=== PATIENT | female | born 1960 | race Caucasian/White ===

== ENCOUNTER 2018-12-03 09:25 | Inpatient (IN) ==
--- NOTE | 2018-11-04 08:08 | History & Physical Report ---
Date of Service November 04, 2018 Date of Surgery: 12-03-18 Assessment & Plan (1) Bilateral primary osteoarthritis of knee: Risks and benefits of procedure discussed in detail today, patient would like to proceed with bilateral total knee replacements at [facility] as scheduled. will obtain medical clearance prior to surgery as well as obtain PATs at [facility]. Will place on Xarelto x 1 month post op, f/u 2 weeks post op for routine post-operative care and x-ray, sooner if having any problems. will make arrangements for transfer to [facility] at time of discharge. At this point in time, has failed conservative measures and would like to proceed with surgical intervention. History of Present Illness Chief Complaint: bilateral knee pain Primary Care Provider: Hussein Knapp MD Ms Hernandez is a 58 year old female who complains of bilateral knee pain equally, presents for pre-op evaluation prior to bilateral total knee replacements on 12-03-[address] [facility]. She presents with pain and stiffness in both knees, and she states that the symptoms have been chronic non-traumatic. The symptoms occur constantly with intermittent worsening. Currently the patient states that the symptoms are moderate. The pain is described as aching, throbbing and sharp. The symptoms occur continuously. She rates her current pain as 6/10, worst is 8/10. The symptoms are aggravated by ascending stairs, daily activities, descending stairs and first steps while awake. Karin states that the symptoms are relieved by no specific activity and Pt. has used Ice and multiple types of braces. In addition to knee pain equally on both sides the patient is also experiencing crepitus, decreased mobility, joint pain, limping, instability, locking, loss of motion, stiffness and "Giving out". Prior NSAIDs include Advil and Aleve. She has been treated with a corticosteroid injection in both knees with no relief. She has had Pt., ambulates with cane at times. Patient has had previous therapy. has failed conservative measures and would like to proceed with bilateral total knee replacements. Allergies Allergy/AdvReac Type Severity Reaction Status Date / Time aspirin AdvReac Unknown BRUISES Verified 10/24/18 12:22 UNDER THE SKIN Home Medications Home Medications Medication Instructions Recorded Confirmed Type ibuprofen [Advil] 800 mg PO QID PRN 10/24/18 10/24/18 History ibuprofen-diphenhydramine cit 3 cap PO HS 10/24/18 10/24/18 History [Advil PM] Past Med/Surg History Medical History GERD (gastroesophageal reflux disease) Migraine HX Nausea and vomiting after administration of anesthetic agent Numbness and tingling in right hand S/P RESIDUAL IN FINGERS AFTER CERVICAL SURGERY 10/2015 Osteoarthritis Surgical History History of appendectomy History of section X 3 History of laminectomy WITH METAL IMPLANTS C3-THRU T1 History of tonsillectomy Family History Grandmother (Paternal) Family history of diabetes mellitus Mother Family history of reaction to anesthesia SLOW TO WAKE UP Social History Preferred Language: Faroese Communication Ability: Effective Netsuite Consultant Required: Yes Beliefs That Will Affect Care: None Current Living Situation: Alone Other Information That Helps Us Care for You: No Feels Safe at Home: Yes Safety Concerns: Feels Safe At This Time Smoking Status: Never smoker Hx Alcohol Use: Yes Hx Substance Use: No Review of Systems All systems reviewed & are unremarkable except as noted in HPI & below Constitutional: no fever, no chills and no sweats Respiratory: no cough and no dyspnea Cardiovascular: no chest pain, no dyspnea and no orthopnea Gastrointestinal: no abdominal pain, no nausea and no vomiting Musculoskeletal: as per Subjective / HPI Integumentary: no rash and no lesions Physical Exam Vital Signs (Past 24 Hours): Ht: 5ft 6in Wt: 108.86kg BP: 130/80 Pulse: 80 Constitutional: WD/WN, vitals as above no acute distress Respiratory: normal respiratory effort, lungs clear to auscultation no respiratory distress, no labored breathing and does not use accessory muscles Cardiovascular: RRR, no murmur, no edema Gastrointestinal (Abdomen): normal bowel sounds, soft, nontender, no hepatosplenomegaly Musculoskeletal: Bilateral knee Physical exam: she ambulates with a limp, overall she has varus alignment bilaterally, there is no atrophy or ecchymosis noted, she does have +1 suprapatellar effusion in both of her knees, she has tenderness to both medial and lateral joint lines to her right knee, more medial sided tenderess to the left knee. negative patellar apprehension, she does have crepitation noted to both knees with active ROM. bilateral knees stable to valgus and varus stress, stewart negative, posterior drawer negative. Range of motion right knee 0/5/110, left knee 0/5/115. her lower extremities are neurovascularly intact, calf soft and non tender, DP pulse +2 bilaterally. Results & Data Diagnostic Findings Bilateral Knee X-ray from 06/28/18 confirm advanced degenerative changes bilateral knees, greatest medial compartments and patellofemoral joints, showing joint space narrowing, osteophyte formation and subchondral sclerosis. no acute bony pathology noted. no loose bodies.
--- NOTE | 2018-11-04 12:43 | Anesthesiology Consultation ---
Date of Service November 04, 2018 Assessment & Plan (1) Encounter for pre-operative examination: PCP Clearance ([facility]EROY) 11/18: "Labs, EKG reviewed-OK...patient is medically cleared. Special attention to positioning, intubation with h.o cervical fusion C3-T1." Chart Review Chart Review: Acceptable Risk for Surgery and Patient seen in Pre Admission Testing Teaching & Discussion Instructed NPO after midnight before surgery, except medications with 15 cc of water. Medication instructions provided according to the PAT guidelines. Per patient, she is to hold Ibuprofen 7 days prior to surgery per surgeon's instructions. History Surgery Operation Date: 12/03/18 11:55 Proposed Procedures p Bilateral Total Knee Arthroplasty - Andrez Sagastume DO Height/Weight Height: 5 ft 6 in Weight: 109.1 kg Allergies Allergy/AdvReac Type Severity Reaction Status Date / Time aspirin AdvReac Unknown BRUISES Verified 10/24/18 12:22 UNDER THE SKIN Medications Home Medications Medication Instructions Recorded Confirmed Last Taken ibuprofen [Advil] 800 mg PO QID PRN 10/24/18 10/24/18 Unknown ibuprofen-diphenhydramine cit 3 cap PO HS 10/24/18 10/24/18 Unknown [Advil PM] Past Medical History Medical History GERD (gastroesophageal reflux disease) Migraine HX Nausea and vomiting after administration of anesthetic agent Numbness and tingling in right hand S/P RESIDUAL IN FINGERS AFTER CERVICAL SURGERY 10/2015 Osteoarthritis Past Family History Family History Grandmother (Paternal) Family history of diabetes mellitus Mother Family history of reaction to anesthesia SLOW TO WAKE UP Past Surgical History Surgical History History of appendectomy History of section X 3 History of laminectomy WITH METAL IMPLANTS C3-THRU T1 History of tonsillectomy Past Anesthesia History No Hx of Anesthesia Complications (other than PONV) and No Family Hx of Anesthesia Complications History of PONV Yes (with general anesthesia) Motion Sickness Screening History of Motion Sickness: Yes (occ) Social History Smoking Status: Never smoker Do You Dip or Chew Tobacco: No Hx Alcohol Use: Yes Alcohol type: wine and hard liquor alcohol intake frequency: holidays/special occasions only Hx Substance Use: No Exercise / Class Metabolic Activity II 4-5 Yardwork/Stairs/Walk up hill (Denies CP or SOB with 1 FOS, using cane currently for ambulation) Review of Systems Pt denies any recent chest pain, shortness of breath, palpitations, cough, fever or URI. Physical Exam Vital Signs BP: 122/80 P: 82bpm SPO2: 99% RA T: 98.2 F R: 12 Constitutional + obese ENMT Mouth: no dental restorations, no chipped teeth and no loose teeth Thyromental Distance: > or= 3.5 Finger Breadths (4) Mallampati Class: III Neck normal visual inspection and + limited neck extension (mildly limited 2/2 c spine fusion) Respiratory normal respiratory effort Auscultation: lungs clear to auscultation bilaterally Cardiovascular Rate/Rhythm: regular rate and regular rhythm Heart Sounds: no murmur Vessels: no carotid bruit Extremities: no edema Testing Electrocardiogram Date: 11/04/18 Findings: + NSR @ (78) Chest X-Ray Date: 11/04/18 Findings: + NAD Laboratory Results 11/04/18 12:28 11/04/18 12:28 Blood Type A Positive 11/04/18 12:28 Antibody Screen NEGATIVE 11/04/18 12:28 PT 10.2 Seconds (9.0-12.0) 11/04/18 12:28 INR 1.0 (0.9-1.1) 11/04/18 12:28 APTT 27.3 Seconds (21.0-31.0) 11/04/18 12:28 Hemoglobin A1c 6.0 % (4.5-5.6) H 11/04/18 12:28 Urine Color Yellow 11/04/18 12:28 Urine Appearance Clear (Clear) 11/04/18 12:28 Urine pH 5.0 (4.5-7.5) 11/04/18 12:28 Ur Specific [place] 1.022 (1.000-1.030) 11/04/18 12:28 Urine Protein Negative (Negative) 11/04/18 12:28 Urine Glucose (UA) Negative (Negative) 11/04/18 12:28 Urine Ketones Negative (Negative) 11/04/18 12:28 Urine Nitrite Negative (Negative) 11/04/18 12:28 Ur Leukocyte Esterase Negative (Negative) 11/04/18 12:28 11/04/18 12:28 Urine Culture - Final Urine,Clean Catch Three types or organisms present, all moderate counts probable skin peyton. No further identifications or sensitivities to follow.
--- NOTE | 2018-11-04 13:23 | XRay Report ---
XR chest Pre-admission PA/Lat CLINICAL HISTORY: pat preoperative COMPARISON STUDY: No previous studies for comparison. FINDINGS: The bones soft tissues and hemidiaphragms are normal. The cardiomediastinal silhouette is n ormal. The lungs are clear. The pulmonary vasculature is normal. IMPRESSION: Negative chest. The above report was generated using voice recognition software. It may contain grammatical, syntax or spelling errors. Electronically signed by: Jamie Phillips M.D. 11/04/2018 1:22 PM
[2018-11-04 13:50] LABS: Appearance Urine Clear (Clear); Bilirubin Urine Negative (Negative); Blood Urine Negative (Negative); Color Urine Yellow; Glucose Urine UA Negative (Negative); Ketones Urine Negative (Negative); Leukocyte Esterase Urine Negative (Negative); Nitrite Urine Negative (Negative); Protein Urine Negative (Negative); Specific Gravity Urine 1.022 (1.000-1.030); Urobilinogen Urine Negative (Negative)
[2018-11-04 13:51] LABS: Basophils # (auto) 0.05 K/uL (0-0.2); Basophils % (auto) 0.5 %; Eosinophils # (auto) 0.21 K/uL (0-0.5); Hematocrit (blood only) 41.6 % (37-47); Hemoglobin 13.9 g/dL (12.0-16.0); Immature Granulocytes # (auto) 0.04 K/uL (0.00-0.02); Immature Granulocytes % (auto) 0.4 %; Lymphocytes # (auto) 2.32 K/uL (1.2-3.4); Lymphocytes % (auto) 22.2 %; Mean Corpuscular Hgb Conc 33.4 g/dL (32-36); Mean Corpuscular Volume 90.6 fL (80-100); Monocytes # (auto) 0.66 K/uL (0.11-0.59); Monocytes % (auto) 6.3 %; Neutrophils # (auto) 7.18 K/uL (1.4-6.5); Neutrophils % (auto) 68.6 %; Platelet Count 301 K/uL (130-400); RDW Coefficient of Variation 13.3 % (11.5-14.5); RDW Standard Deviation 43.9 fL (36.4-46.3); Red Blood Count 4.59 M/uL (4.2-5.4); White Blood Count 10.46 K/uL (4.8-10.8)
[2018-11-04 14:08] LABS: Albumin Level 4.1 gm/dl (3.4-5.0); Calcium 9.6 mg/dl (8.5-10.1); Creatinine Clr Calc Pharmacy 70.1 ml/min; Est GFR (African American) 65.1; Est GFR (Non-African American) 56.1; Partial Thromboplastin Time 27.3 Seconds (21.0-31.0); Potassium 4.2 mmol/L (3.5-5.1); Prothrombin Time 10.2 Seconds (9.0-12.0)
[2018-11-04 14:10] LABS: Estimated Average Glucose 126 mg/dl
[~2018-12-03 09:25] MED LIST: ACETAMINOPHEN 500 MG TAB PO SCH; BUPIVACAINE 0.5 % 5 MG/1 ML PF 10ML VIAL ONE; BUPIVACAINE/EPINEPHRINE 0.5% MPF 1:200,000 30 ML VIAL ONE; CEFAZOLIN 2000MG 2,000 MG/15 ML SYR IV SCH; CeleBREX 200 MG CAP PO SCH; DEXAMETHASONE SOD INJ 4 MG/ML VIAL ONE; FAMOTIDINE 20 MG TAB PO SCH; GABAPENTIN 300 MG PO SCH; LIDOCAINE HCL 2% 2 ML VIAL/AMP(20MG/ML) INFIL ONE; LR 500ML BOLUS, THEN 15ML/HR IV SCH; MIDAZOLAM HCL 1 MG/ML 2ML VIAL ONE; ONDANSETRON INJ 2 MG/ML 2 ML VIAL ONE; PROPOFOL IV EMULSION 10 MG/ML 20 ML VIAL IV ONE; ROPIVACAINE 0.5% HCL/PF 150 MG, BUPIVACAINE 0.5% MPF 30 ML, EPINEPHrine 30MG/30ML (OR U... INFIL SCH; TRANEXAMIC ACID 1,000 MG **IV Intra-op IV SCH; TRANEXAMIC ACID 1,000 MG **IV Pre-op IV SCH; dexAMETHasone 4 MG TAB PO SCH; fentaNYL citrate 100 MCG/2 ML VIAL ONE
--- NOTE | 2018-12-03 09:48 | History & Physical Bridge Note ---
Date of Service December 03, 2018 History & Physical Bridge Note I have examined the patient, reviewed the History & Physical and in the interval since the performance of the History & Physical I have noted the following changes of clinical significance: no changes noted
[2018-12-03] MEDS ORDERED: POVIDONE-IODINE OP SOLN 30 ML BTL ONE (10:16)
[2018-12-03] MEDS ORDERED: ORTHO JOINT ANESTHETIC ONE (10:16)
[2018-12-03] MEDS ORDERED: BACITRACIN INJ 50,000 UNIT VIAL ONE (10:16)
[2018-12-03] MEDS ORDERED: fentaNYL citrate 100 MCG/2 ML VIAL IV PRN (10:33)
[2018-12-03] MEDS ORDERED: ePHEDrine sulfate 50 MG/ML AMP IV PRN (10:33)
[2018-12-03] MEDS ORDERED: ONDANSETRON INJ 2 MG/ML 2 ML VIAL IV PRN ×2 (10:33→15:58)
[2018-12-03] MEDS ORDERED: ATROPINE SULFATE 0.1 MG/ML 10ML SYR IV PRN (10:33)
[2018-12-03] MEDS ORDERED: MIDAZOLAM HCL 1 MG/ML 2ML VIAL ONE (11:47)
[2018-12-03] MEDS ORDERED: PROPOFOL IV EMULSION 10 MG/ML 20 ML VIAL IV ONE ×3 (12:19→13:31)
--- NOTE | 2018-12-03 15:33 | Operative Report ---
Post Operative Report Pre & Post Diagnosis Operation Date: 12/03/18 11:55 Pre-Op Diagnosis: Bilateral knee osteorathritis Post-Op Diagnosis: Bilateral knee osteorathritis Procedure Operation Date: 12/03/18 11:55 Actual Procedures p Bilateral Total Knee Arthroplasty(Bilateral utilizing Dieter persona bilateral patient matched total knee arthroplasty right size 7 standard femur EE tibia 10 medial constrained poly-31 x 8 asymmetrical patella left size 7 narrow femur the left tibia 10 mm medial constrained poly-28 x 8 mm asymmetrical patella) - Andrez Sagastume DO Surgeon Andrez Sagastume DO Delivery Table Operator Devan WELCH Estimated Blood Loss 10 Findings Consistent with Post-Op Diagnosis Patient presents with severe end-stage tricompartmental degenerative joint disease bilateral knees with varus alignment cystic changes [id number] eburnated with medial and lateral osteophytes as well as eburnated bone to bone on bilateral patellofemoral joints patient's available attempts at conservative management presents for bilateral total knee arthroplasty Specimens Bone and cartilage Complications none Disposition Accompanied Patient To Recovery: No Disposition: Recovery Room Indications [facility] after failing attempts at conservative management the above intraoperative findings at the time of surgery patient is failed attempts at previous corticosteroid injections [place]co supplementation bracing weight loss relative rest activity modification she presents the above intraoperative findings were noted patient presents for bilateral total knee arthroplasty Description of Procedure After proper prepping draping the bilateral lower extremities the right lower extremity was performed first an anterior incision was made in the region of the midline dissection was carried down through subcu tissues to the region medial parapatellar incision was made patella subluxed lateralward medial lateral meniscal joints were excised distal femoral osteotomy cut was made utilizing a custom jig the distal femoral cut having been made for 1 block was used proximal femoral chamfers and the distal femoral chamfers were all made as well as anterior posterior cuts and excellent alignment the osteophytes were all removed tibia was subluxed anterior were remaining remnants of moved proximal tibia was prepared utilizing intramedullary cutting guide flexion extension gaps were checked and laminar road hogger operator was used to remove any osteophytes in the posterior space the patient was subsequently the proximal tibia prepared utilizing appropriate reamers and chamfer cuts after having a placed trial of a 10 mm spacer was noted to give excellent stability in both the lateral compartments full range of motion from full extension stable to mid flexion stable to flexion with no area of tightness patella tracking was noted to be excellent socially was irrigated with copious muscle sterile saline solution was obtained and maintained the final components were brought in the field and cemented the following order tibia femur patella the 10 mm medial constrained poly-was placed excellent stability was evidence of smooth deep fascia closed over 2 medium bore Hemovacs with a #1 Vicryl subcu was 2-0 Vicryl skin was closed with a running by V lock suture and skin glue sterile compression dressings placed system of the left lower extremity went underwent an anterior standard incision dissection carried down medial parapatellar incision was made patella was subluxed lateralward the femur patella was prepared and drilled the proximal femur was prepared utilizing a custom fit guide distal femoral osteotomy was made as well as the 4-in-1 cut tibia was subluxed anteriorward proximal tibial osteotomy was made and small osteophytes were removed who have been thoroughly irrigated appropriate trials were placed taken through full range of motion is usually stable to full range of motion including flexion extension mid flexion socially the following components were cemented in the appropriate order tibia femur patella excellent stability was noted a 10 mm strain poly-was placed and formed thorough irrigation debridement was obtained mild abrasion to the medial proptosis closed over 2 medium bore Hemovacs with #1 Vicryl subcuticular Vicryl sutures with a running V lock suture sterile compressive dressing as well as skin glue was placed patient socially taken recovery in stable condition appropriate document was present Devan WELCH was necessary for prepping draping retraction wound closure and was necessary for the case I attest to the content of the Intraoperative Record and any orders documented therein. Any exceptions are noted below.
--- NOTE | 2018-12-03 15:37 | Anesthesiology Progress Note ---
Date of Service December 03, 2018 Anesthesia Post Procedure Vital Signs Vital Signs: Temp Pulse Pulse Resp BP Pulse Ox 12/03/18 14:45 74 16 121/70 98 12/03/18 14:35 77 16 116/70 99 12/03/18 14:28 36.5 C 86 16 126/74 99 12/03/18 10:03 36.7 C 85 20 137/68 96 Transfer of Care Handoff Completed per policy Notes Mental Status: alert / awake / arousable Patient Amnestic to Procedure: Yes Nausea / Vomiting: adequately controlled Pain: adequately controlled Airway Patency, RR, SpO2: stable & adequate BP & HR: stable & adequate Hydration State: stable & adequate Neuraxial Anesthesia: was administered and sensory block is resolving Anesthetic Complications: no major complications apparent and Pt Satisfied with anesthetic care
--- NOTE | 2018-12-03 15:45 | XRay Report ---
XR knee RT 2V routine CLINICAL HISTORY: Surgical Post Op COMPARISON: None. DISCUSSION: There are postsurgical changes of a total right knee arthroplasty and patellar resurfacin g. The femoral tibial components appear well seated. Overlying surgical drains are evident. There is air in the soft tissues consistent with recent surgery. IMPRESSION: Postsurgical changes of a total right knee arthroplasty. Electronically signed by: Jaden Cowan M.D. 12/03/2018 3:44 PM
--- NOTE | 2018-12-03 15:46 | XRay Report ---
XR knee LT 2V routine CLINICAL HISTORY: Surgical Post Op COMPARISON: None. DISCUSSION: There are postsurgical changes of a total left knee arthroplasty and patellar resurfacing . The femoral and tibial components appear well seated. Overlying surgical drains are evident. There is air within the soft tissues consistent with recent surgery. IMPRESSION: Postsurgical changes of a total left knee arthroplasty. Electronically signed by: Jaden Cowan M.D. 12/03/2018 3:44 PM
[2018-12-03] MEDS ORDERED: HYDROmorphone INJ 0.5 MG/0.5 ML SYR IV PRN (15:58)
[2018-12-03] MEDS ORDERED: BISACODYL 10 MG SUPP PR PRN (15:58)
[2018-12-03] MEDS ORDERED: MAGNESIUM HYDROXIDE SUSP 30 ML UDC PO PRN (15:58)
[2018-12-03] MEDS ORDERED: NALOXONE HCL 0.4 MG/1 ML VIAL/CARP IV PRN (15:58)
[2018-12-03] MEDS: OXYCODONE HCL IR 5 MG TAB (IMMEDIATE RELEASE) PO PRN ×2 (19:16→20:20)
[2018-12-03] MEDS: SODIUM CHLORIDE 0.9% 1000ML 1,000 ML IV SCH (20:21)
[2018-12-03] MEDS: DOCUSATE SODIUM 100 MG CAP PO SCH (21:13)
[2018-12-03] MEDS: SENNA 8.6 MG TAB PO SCH (21:14)
[2018-12-03] MEDS: CEFAZOLIN 2000MG 2,000 MG/15 ML SYR IV SCH (21:19)
[2018-12-03] MEDS: ACETAMINOPHEN 500 MG TAB PO SCH (21:19)
[2018-12-04] MEDS: OXYCODONE HCL IR 5 MG TAB (IMMEDIATE RELEASE) PO PRN ×5 (00:18→22:03)
[2018-12-04] MEDS: CEFAZOLIN 2000MG 2,000 MG/15 ML SYR IV SCH (05:25)
[2018-12-04] MEDS: ACETAMINOPHEN 500 MG TAB PO SCH ×3 (05:25→20:51)
[2018-12-04] MEDS: SODIUM CHLORIDE 0.9% 1000ML 1,000 ML IV SCH (05:26)
[2018-12-04 06:19] LABS: Hematocrit (blood only) 33.2 % (37-47); Hemoglobin 11.5 g/dL (12.0-16.0); Mean Corpuscular Hgb Conc 34.6 g/dL (32-36); Mean Corpuscular Volume 87.4 fL (80-100); Mean Platelet Volume 10.8 fL (7.4-10.4); Platelet Count 227 K/uL (130-400); RDW Coefficient of Variation 13.6 % (11.5-14.5); RDW Standard Deviation 43.6 fL (36.4-46.3); White Blood Count 12.22 K/uL (4.8-10.8)
[2018-12-04 07:07] LABS: Calcium 8.2 mg/dl (8.5-10.1); Creatinine Clr Calc Pharmacy 77.5 ml/min; Est GFR (African American) 74.1; Est GFR (Non-African American) 63.9
[2018-12-04] MEDS: MULTIVITAMIN TAB PO SCH (07:57)
[2018-12-04] MEDS: DOCUSATE SODIUM 100 MG CAP PO SCH ×2 (07:57→20:50)
[2018-12-04] MEDS: RIVAROXABAN 10 MG TABLET PO SCH (07:57)
[2018-12-04] MEDS: KETOROLAC 30 MG/ML VIAL IV SCH ×3 (08:01→20:51)
--- NOTE | 2018-12-04 08:07 | Anesthesiology Progress Note ---
Date of Service December 04, 2018 Anesthesia Post Procedure Vital Signs Vital Signs: Temp Pulse Pulse Pulse Resp BP BP 12/04/18 04:05 36.4 C L 76 18 115/77 12/03/18 23:10 36.4 C L 77 18 95/61 L 12/03/18 19:05 36.6 C 74 16 126/75 12/03/18 17:47 86 18 122/78 12/03/18 16:44 77 16 129/79 12/03/18 16:20 79 16 128/79 12/03/18 15:45 36.8 C 69 16 115/71 12/03/18 15:25 36.9 C 68 16 115/76 12/03/18 15:15 36.9 C 74 16 115/71 12/03/18 15:05 74 16 117/70 12/03/18 14:55 74 16 129/72 12/03/18 14:45 74 16 121/70 12/03/18 14:35 77 16 116/70 12/03/18 14:28 36.5 C 86 16 126/74 12/03/18 10:03 36.7 C 85 20 137/68 Pulse Ox 12/04/18 04:05 98 12/03/18 23:10 97 12/03/18 19:05 94 12/03/18 17:47 97 12/03/18 16:44 98 12/03/18 16:20 98 12/03/18 15:45 99 12/03/18 15:25 98 12/03/18 15:15 98 12/03/18 15:05 98 12/03/18 14:55 98 12/03/18 14:45 98 12/03/18 14:35 99 12/03/18 14:28 99 12/03/18 10:03 96 Pain Intensity Bilateral Knee: Pain Intensity: 3 Notes Mental Status: alert / awake / arousable and participated in evaluation Patient Amnestic to Procedure: Yes Nausea / Vomiting: adequately controlled Pain: adequately controlled Airway Patency, RR, SpO2: stable & adequate BP & HR: stable & adequate Hydration State: stable & adequate Neuraxial Anesthesia: was administered and sensory block resolved Anesthetic Complications: no major complications apparent
--- NOTE | 2018-12-04 08:24 | Orthopedic Progress Note ---
Date of Service December 04, 2018 Assessment & Plan (1) Bilateral primary osteoarthritis of knee: Postop day 1 status post bilateral total knee arthroplasty. Begin PT and OT protocols today with weightbearing as tolerated. We may possibly have to use an immobilizer on the one knee depending on how much weakness or buckling she is having. Nursing is aware. DVT prophylaxis with rivaroxaban, SCDs, and JULIETA hose. Pain management with acetaminophen, oxycodone, hydromorphone, with addition of Toradol 30 mg IV every 6 hours DC planning-[facility] group home facility. Subjective Postop day 1 status post bilateral total knee arthroplasty. Patient is currently lying in bed. She is awake and alert. She states that she has been out of bed to the bedside commode but not much more than that. Moderate pain when doing this. She also states that her knees feel a little weak and one feels like it wants to buckle right greater than left. She denies shortness of breath, chest pain, lightheadedness. She denies calf tenderness. She is hoping to go to [facility] post discharge. Physical Exam Physical Exam: Dressings are clean, dry, and intact bilaterally. Calves are soft and nontender. Neurovascular is intact. Toes are mobile. Hemovac drainage was 100 mL's from the right and 10 mL's from the left. Results & Data Vital Signs (Past 12 Hours) Vital Signs Temp Pulse Pulse Resp BP BP Pulse Ox 12/04/18 07:40 36.4 C L 80 16 124/76 98 12/04/18 04:05 36.4 C L 76 18 115/77 98 12/03/18 23:10 36.4 C L 77 18 95/61 L 97 Laboratory Results Laboratory Results WBC 12.22 K/uL (4.8-10.8) H 12/04/18 05:50 RBC 3.80 M/uL (4.2-5.4) L 12/04/18 05:50 Hgb 11.5 g/dL (12.0-16.0) L 12/04/18 05:50 Hct 33.2 % (37-47) L 12/04/18 05:50 MCV 87.4 fL (80-100) 12/04/18 05:50 MCH 30.3 pg (25-34) 12/04/18 05:50 MCHC 34.6 g/dL (32-36) 12/04/18 05:50 RDW Std Deviation 43.6 fL (36.4-46.3) 12/04/18 05:50 RDW Coeff of Bobbi 13.6 % (11.5-14.5) 12/04/18 05:50 Plt Count 227 K/uL (130-400) 12/04/18 05:50 MPV 10.8 fL (7.4-10.4) H 12/04/18 05:50 Immature Gran % (Auto) 0.4 % 11/04/18 12:28 Neut % (Auto) 68.6 % 11/04/18 12:28 Lymph % (Auto) 22.2 % 11/04/18 12:28 [place] % (Auto) 6.3 % 11/04/18 12:28 Eos % (Auto) 2.0 % 11/04/18 12:28 Baso % (Auto) 0.5 % 11/04/18 12:28 Immature Gran # (Auto) 0.04 K/uL (0.00-0.02) H 11/04/18 12:28 Neut # (Auto) 7.18 K/uL (1.4-6.5) H 11/04/18 12:28 Lymph # (Auto) 2.32 K/uL (1.2-3.4) 11/04/18 12:28 [place] # (Auto) 0.66 K/uL (0.11-0.59) H 11/04/18 12:28 Eos # (Auto) 0.21 K/uL (0-0.5) 11/04/18 12:28 Baso # (Auto) 0.05 K/uL (0-0.2) 11/04/18 12:28 PT 10.2 Seconds (9.0-12.0) 11/04/18 12:28 INR 1.0 (0.9-1.1) 11/04/18 12: APTT 27.3 Seconds (21.0-31.0) 11/04/18 12:28 PTT Ratio 1.0 11/04/18 12:28 Sodium 138 mmol/L (136-145) 12/04/18 05:50 Potassium 4.0 mmol/L (3.5-5.1) 12/04/18 07:08 Chloride 109 mmol/L (98-107) H 12/04/18 05:50 Carbon Dioxide 22 mmol/L (21-32) 12/04/18 05:50 7.0 (3-11) 12/04/18 05:50 BUN 14 mg/dl (7-18) 12/04/18 05:50 0.97 mg/dl (0.6-1.2) 12/04/18 05:50 Est Cr Clr Drug Dosing 77.5 ml/min 12/04/18 05:50 Est GFR ( Amer) 74.1 12/04/18 05:50 Est GFR (Non-Af Amer) 63.9 12/04/18 05:50 14.0 (10-20) 12/04/18 05:50 Glucose 141 mg/dl (70-99) H 12/04/18 05:50 Estimat Average Glucose 126 mg/dl 11/04/18 12:28 6.0 % (4.5-5.6) H 11/04/18 12:28 Calcium 8.2 mg/dl (8.5-10.1) L 12/04/18 05:50 4.1 gm/dl (3.4-5.0) 11/04/18 12:28 Yellow 11/04/18 12:28 Clear (Clear) 11/04/18 12:28 5.0 (4.5-7.5) 11/04/18 12:28 Ur Specific [place] 1.022 (1.000-1.030) 11/04/18 12:28 Negative (Negative) 11/04/18 12:28 Negative (Negative) 11/04/18 12:28 Negative (Negative) 11/04/18 12:28 Negative (Negative) 11/04/18 12:28 Negative (Negative) 11/04/18 12:28 Negative (Negative) 11/04/18 12:28 Negative (Negative) 11/04/18 12:28 Ur Leukocyte Esterase Negative (Negative) 11/04/18 12:28 Blood Type A Positive 11/04/18 12:28 Antibody Screen NEGATIVE 11/04/18 12:28
[2018-12-04] MEDS: SENNA 8.6 MG TAB PO SCH (20:50)
[2018-12-05] MEDS: KETOROLAC 30 MG/ML VIAL IV SCH ×3 (02:39→14:54)
[2018-12-05] MEDS: ACETAMINOPHEN 500 MG TAB PO SCH ×2 (06:08→14:55)
[2018-12-05] MEDS: OXYCODONE HCL IR 5 MG TAB (IMMEDIATE RELEASE) PO PRN ×3 (06:08→14:55)
[2018-12-05] MEDS: RIVAROXABAN 10 MG TABLET PO SCH (07:41)
[2018-12-05] MEDS: MULTIVITAMIN TAB PO SCH (07:41)
[2018-12-05] MEDS: DOCUSATE SODIUM 100 MG CAP PO SCH (07:41)
--- NOTE | 2018-12-05 09:39 | Orthopedic Progress Note ---
Date of Service December 05, 2018 Assessment & Plan (1) Bilateral primary osteoarthritis of knee: Postop day 2 status post bilateral total knee arthroplasty. Continue PT and OT protocols today with weightbearing as tolerated. We may possibly have to use an immobilizer on the one knee depending on how much weakness or buckling she is having. Nursing is aware. DVT prophylaxis with rivaroxaban, SCDs, and JULIETA hose. Pain management with acetaminophen, oxycodone, hydromorphone, with addition of Toradol 30 mg IV every 6 hours DC planning-[facility] residential facility. Awaiting authorizations. Subjective Postop day 2 status post bilateral total knee arthroplasty. Patient is currently sitting up in her chair at the bedside. She is in the process of doing her physical therapy. She denies shortness of breath, chest pain, lightheadedness. She does state that she has been having some cramping in her left calf but no constant pain. Pain is controlled fairly well. Physical Exam Physical Exam: Bilateral incisions are clean, dry and intact. There is no overt erythema. Both knees have obvious swelling that looks normal for surgery. Calves are soft and nontender. Her left calf was the one she was having cramps in and with Homans exam with forced dorsiflexion of the ankle, causes what she feels is stretching in the calf. Neurovascular is intact. Toes are mobile. Results & Data Vital Signs (Past 12 Hours) Vital Signs Temp Pulse Resp BP Pulse Ox 12/05/18 07:22 36.4 C L 74 16 108/70 100 12/04/18 23:30 36.5 C 83 18 104/66 97
--- NOTE | 2018-12-11 01:11 | Discharge Summary ---
DISCHARGE DIAGNOSIS: Degenerative joint disease, bilateral knees. SECONDARY DIAGNOSES: Gastroesophageal reflux disease, migraine headaches, history of nausea and vomiting with anesthetic agents, osteoarthritis, history of cervical neck surgery with residual numbness in fingers. CONSULTS: None. COMPLICATIONS: None. PROCEDURES: Bilateral total knee arthroplasty performed by Dr. Sagastume on 12/03/2018. BRIEF HISTORY: As dictated in the history and physical. HOSPITAL SUMMARY: The patient was admitted on the above-noted date and had the above-noted surgery performed, which she tolerated well. On the first postoperative day, the patient was currently lying in bed. She is awake and alert and stated that she has been out of bed to the bedside commode, but not much more than that, moderate pain whenever doing this. She also states that her knee has felt a little weak and one leg felt like it wanted to buckle on the right side greater than the left. She denies shortness of breath or chest pain or lightheadedness. She denied calf tenderness. She is hoping to go to [facility] post-discharge. Dressings clean, dry and intact bilaterally. Calves were soft, nontender. Neurovascularly intact. Toes were mobile. Hemovac drainage was 100 mL from the right and 10 mm from the left. Vital signs were stable. She was afebrile. Hemoglobin was 11.5. She was started on PT and OT protocols with weightbearing as tolerated. Use of an immobilizer on one knee if knee was buckling if needed. Deep venous thrombosis prophylaxis with rivaroxaban, SCDs and JULIETA hose. Pain management with acetaminophen, oxycodone, hydromorphone with the addition of Toradol 30 mg IV q. 6 hours. By her second postoperative day, the patient was currently sitting up in her chair at the bedside. She is in the process of doing her physical therapy and denies shortness of breath, chest pain or lightheadedness. She does state that she has been having some cramping in her left calf, but no constant pain. Pain is controlled fairly well at this time. Vital signs were stable. She is afebrile. Bilateral incisions clean, dry and intact. There is no overt erythema. Both knees have obvious swelling that looks normal for surgery. Calves were soft and nontender. Left calf was the one she was having cramps in and with Homans' exam with forced dorsiflexion of the ankle caused which she feels is stretching in the calf. Neurovascularly, she is intact. Toes were mobile. She was continued on a PT, OT protocols and continued on DVT prophylaxis and pain management. She was approved for [facility] and she was remaining stable and it was felt she could be transferred to [facility] for further physical therapy and care. For further review, please see chart. LABORATORY AND X-RAY DATA: As per chart. DISCHARGE INSTRUCTIONS: The patient was discharged to [facility] rehab for further physical therapy and care on 12/05/2018. DIET: Regular. ACTIVITY: Left and right weightbearing as tolerated with walker. Follow [facility] instruction sheets and special care instructions as noted. Follow up with Dr. Sagastume in 2 weeks. The patient to call for appointment if one has not been made for you. DISCHARGE MEDICATIONS: Acetaminophen 1000 mg p.o. q. 8 hours, cefadroxil 500 mg p.o. b.i.d., Colace 100 mg p.o. b.i.d., multivitamin 1 tab p.o. q.a.m., oxycodone 5-10 mg p.o. q. 6 hours, sennosides 17.2 mg p.o. at bedtime, Xarelto 10 mg p.o. daily for 1 month. Stop taking ibuprofen and Advil PM.
== END 2018-12-05 16:52 | DRG 462 ==
LOC: ASU 09:25 → 3E 14:33